=== PATIENT | male | born 1975 | race Caucasian/White ===

== ENCOUNTER 2024-10-30 17:37 | Emergency (ER) | payer BC, SELFPAY ==
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
--- NOTE | 2024-10-30 17:46 | CT_ITS ---
PROCEDURE INFORMATION: Exam: CT Abdomen And Pelvis With Contrast Exam date and time: 10/30/2024 7:11 PM Age: 49 years old Clinical indication: Abdominal pain; Generalized; Additional info: Right flank pain TECHNIQUE: Imaging protocol: Computed tomography of the abdomen and pelvis with contrast. Radiation optimization: All CT scans at this facility use at least one of these dose optimization techniques: automated exposure control; mA and/or kV adjustment per patient size (includes targeted exams where dose is matched to clinical indication); or iterative reconstruction. Contrast material: ISOVUE; Contrast volume: 75 ml; Contrast route: IV; COMPARISON: No relevant prior studies available. FINDINGS: Lungs: There are punctate pulmonary parenchymal calcifications consistent with remote granulomatous organism exposure. Pleural spaces: There are no pleural effusions. Heart: The heart is borderline enlarged. There is no evidence of pericardial fluid collections. Liver: There is diffuse decrease in hepatic/liver parenchymal density consistent with fatty infiltration. There are regions of focal parenchymal sparing adjacent to the gallbladder fossa. There is mild enlargement of the liver. The liver measures approximately 20.7 cm in cc dimension. Gallbladder and biliary ducts: The gallbladder is normal. Pancreas: The pancreas is normal. Spleen: The spleen demonstrates punctate calcifications, consistent with remote granulomatous organism exposure. Adrenal glands: There is mild nondiscrete fullness to both adrenal glands which may reflect adenomatous change. Kidneys and ureters: There is a distal right ureteral calcification above the ureterovesicular junction measuring approximately 4.3 mm resulting in mild hydronephrosis and mild periureteric fat stranding. There is a tiny left nephrolith. Left kidney is otherwise within range of normal. Stomach and bowel: The stomach is normal. The duodenum is unremarkable. Unopacified loops of small bowel within range of normal. Lack of gastrointestinal contrast limits evaluation of bowel. The colon is normal. Appendix: A normal appendix is identified. Intraperitoneal space: No evidence of intraperitoneal free air. There is no evidence of free intraperitoneal or pelvic fluid. Vasculature: No abdominal aortic aneurysm. Lymph nodes: Calcified right infrahilar lymph nodes indicate prior granulomatous disease. No pathologic adenopathy. Urinary bladder: The bladder is incompletely distended. As seen, it appears within range of normal. Reproductive: Prostate measures approximately 4.5 x 3.3 cm. Bones/joints: The thoracolumbar spine demonstrates mild degenerative changes at multiple levels. Soft tissues: No significant soft tissue edema. There is a small fat-containing umbilical hernia. IMPRESSION: 1. Right distal ureteral stone measuring approximately 4.3 mm resulting in mild hydronephrosis and mild periureteric fat stranding. 2. Fatty hepatic infiltration. 3. Small fat-containing umbilical hernia. 4. Tiny nonobstructing left nephrolith. 5. Mild hepatomegaly.
[2024-10-30 17:55] VITALS: BP 222/135; PULSE 102; RESP 16; TEMP 37.3; O2SAT 96; BMI 33.2
[2024-10-30 18:04] VITALS: BP 184/107; PULSE 86; RESP 18; O2SAT 99
[2024-10-30] MEDS: KETOROLAC 30MG/ML VIAL 15 MG IV (18:05)
[2024-10-30] MEDS: ONDANSETRON 4MG/2ML VIAL 4 MG IV (18:05)
[2024-10-30] MEDS: 0.9 % SODIUM CHLORIDE 1000ML 1,000 ML 999 ML IV (18:06)
[2024-10-30] MEDS: TAMSULOSIN 0.4MG CAPSULE 0.4 MG PO (18:06)
[2024-10-30] MEDS: ACETAMINOPHEN 500MG TAB 1000 MG PO (18:06)
[2024-10-30 18:09] LABS: Microscopic, Urine URINE MICROSCOPIC (MICROSCOPIC)
[2024-10-30 18:13] LABS: Basophils % 0.3 % (0.1-2.0); Eosinophils % 0.1 % (0.1-12.0); Hematocrit 48.9 % (42.0-52.0); Hemoglobin 17.3 g/dL (14.1-18.0); Immature Granulocytes # 0.06 10^3uL; Immature Granulocytes % 0.4 %; Lymphocytes % 6.4 % (10-50); Mean Corpuscular HGB Conc 35.4 g/dL (31.8-35.4); Mean Corpuscular Hemoglobin 31.9 pg (27.0-31.2); Mean Corpuscular Volume 90.1 fl (80-94); Mean Platelet Volume 9.7 fl (7.4-10.4); Monocytes # 0.4 K/mm3 (0.1-1.0); Monocytes % 2.9 % (1.7-9.3); Neutrophils # 13.6 K/mm3 (1.8-7.8); Neutrophils % 89.9 % (37.0-80.0); Nucleated Red Blood Cells # 0 10^3/uL; Nucleated Red Blood Cells % 0 %; Platelet Count 238 K/mm3 (142-424); Red Blood Count 5.43 M/mm3 (4.60-6.20); Red Cell Distribution Width 11.7 % (11.5-17.5); Red Cell Distribution Width-SD 38.1 fL; White Blood Count 15.1 K/mm3 (4.8-10.8)
[2024-10-30 18:26] LABS: Bilirubin,Urine Negative (Negative); Blood, Urine 3+ (Negative); Color,Urine YELLOW (Yellow); Glucose,Urine (UA) Negative (Negative); Ketones,Urine 1+ (Negative); Leukocyte Esterase,Urine Negative (Negative); Nitrate,Urine Negative (Negative); Protein,Urine TRACE (Negative); Urobilinogen,Urine 0.2 EU/dl (0.2)
[2024-10-30 18:31] LABS: Alanine Aminotransferase 42 U/L (12-78); Albumin Level 4.9 g/dl (3.5-5.0); Albumin/Globulin Ratio 1.4 (1.1-1.8); Alkaline Phosphatase 99 U/L (38-126); Anion Gap 13.2 mEq/L (5-15); Aspartate Amino Transferase 39 U/L (17-59); Bilirubin,Total 0.9 mg/dl (0.2-1.3); Blood Urea Nitrogen 14 mg/dl (9-20); Calcium 9.2 mg/dl (8.4-10.2); Carbon Dioxide 26 mmol/L (22.0-30.0); Chloride 103 mmol/L (98-107); Creatinine Clearance Estimated 97 mL/min (50-200); Estimated Glomerular Filt Rate 58 ml/min (>60); GFR (African American) 70 ML/MIN (>60); Globulin 3.5 g/dL (1.3-3.2); Glucose 169 mg/dl (74-100); Potassium 4.2 mmoL/L (3.5-5.1); Sodium 138 mmol/L (136-145); Total Protein,Serum 8.4 g/dl (6.3-8.2)
[2024-10-30 18:45] VITALS: BP 152/79; PULSE 85; RESP 18; O2SAT 97
[2024-10-30 18:48] LABS: Procalcitonin 0.079 ng/mL (0.0-2.0)
[2024-10-30 18:59] LABS: Appearance,Urine Cloudy (Clear)
--- NOTE | 2024-10-30 19:07 | PC.NURSE ---
report from Manohar ALY. Assumed care of patient at this time.
[2024-10-30] MEDS: SODIUM CHLORIDE 0.9% 10ML SYR (RAD ONLY) 10 ML IV (19:12)
[2024-10-30] MEDS: IOPAMIDOL-370 (76%);100ML BOTTLE 75 ML IV (19:12)
[2024-10-30 19:34] VITALS: BP 152/79; PULSE 74; RESP 16; TEMP 36.7; O2SAT 97
[2024-10-30 20:07] LABS: HIV Combo NEGATIVE (Negative)
[2024-10-30 20:10] LABS: Bacteria,Urine 1+ /lpf; RBC,Urine 50-100 #/hpf (0-3)
[2024-10-30 20:15] LABS: Hepatitis C Ab Qual. W/ RFX NEGATIVE (Negative)
== END 2024-10-30 19:35 | disposition home or self-care (01) ==
PROVIDERS: Physician Assistant; Emergency Provider Student in an Organized Health Care Education/Training Program; PCP Family Medicine
DX: N20.1 Calculus of ureter (principal); I10 Essential (primary) hypertension; N17.9 Acute kidney failure, unspecified
CPT/HCPCS: 74177; 80053; 80074; 81001; 84145; 85025; 87389; 96361; 96374; 96375; 99284; J1885; J2405; J7030; Q9967